=== PATIENT | male | born 1945 | race Two or more races ===

== ENCOUNTER 2020-09-08 19:21 | Emergency (ER) | payer OTHER, MEDICAID ==
[~2020-09-08] VITALS: Ht 167.6 cm; Wt 79.4 kg
[2020-09-08 22:20] LABS: Basophils # (auto) 0 10 ^3/uL (0-0.2); Basophils % (auto) 0.2 % (0.0-2.0); Eosinophils # (auto) 0 10 ^3/uL (0-0.8); Eosinophils % (auto) 0.3 % (0.0-7.0); Hematocrit 43.4 % (41.0-53.0); Lymphocytes # (auto) 1.5 10 ^3/uL (0.4-5.4); Lymphocytes % (auto) 13.2 % (10.0-50.0); Mean Corpuscular Hemoglobin 32.5 pg (28.0-32.0); Mean Corpuscular Hgb Conc. 34.5 g/dL (32.0-36.0); Mean Corpuscular Volume 94.1 fL (80.0-100.0); Monocytes # (auto) 0.8 10 ^3/uL (0-1.3); Monocytes % (auto) 7.1 % (0.0-12.0); Neutrophils # (auto) 9.1 10 ^3/uL (1.6-8.6); Neutrophils % (auto) 79.2 % (37.0-80.0); Platelet Count (auto) 273 10^3/uL (140-450); Red Blood Cells 4.61 10^6/uL (4.5-5.90); Red Cell Distribution Width 13.5 % (11.8-14.3); White Blood Cell 11.4 10^3/uL (4.4-10.8)
[2020-09-08 22:31] VITALS: BP 137/82
[2020-09-08 22:36] LABS: Urine Bacteria NONE SEEN /hpf (None Seen); Urine Blood 1+ /uL (Negative); Urine Specific Gravity 1.022 (1.001-1.035); Urine WBC 1 /hpf (0 - 3)
[2020-09-08 22:41] LABS: Alanine Aminotransferase 37 U/L (16-61); Albumin 3.9 g/dL (3.4-5.0); Anion Gap 9 (5-15); Aspartate Aminotransferase 28 U/L (15-37); BUN/Creatinine Ratio 28.2; Blood Urea Nitrogen 20 mg/dL (7-18); Calcium 8.4 mg/dL (8.5-10.1); Carbon Dioxide 23 mmol/L (21-32); Chloride 107 mmol/L (98-107); GFR African American 138 mL/min; GFR Non-African American 114 mL/min; Glucose 103 mg/dL (74-106); Potassium 3.6 mmol/L (3.5-5.1); Sodium 139 mmol/L (136-145)
[2020-09-08 22:44] LABS: Alkaline Phosphatase 96 U/L (45-117); Total Protein 7.8 g/dL (6.4-8.2)
[2020-09-08 23:33] LABS: INR 1.02 (0.9-1.15); Partial Thromboplastin Time 25.9 sec (23.0-31.2)
== END 2020-09-09 00:28 | disposition home or self-care (01) ==
LOC: ER 19:21
DX: R10.9 Unspecified abdominal pain (principal); V49.9XXA Car occupant (driver) (passenger) injured in unspecified traffic accident, initial encounter; Y93.89 Activity, other specified; Y92.89 Other specified places as the place of occurrence of the external cause; Y99.8 Other external cause status
CPT/HCPCS: 36415; 70450; 71250; 72125; 74176; 80053; 81001; 85025; 85610; 85730; 86850; 86900; 86901; 93005